=== PATIENT | female | born 1980 | race Two or more races ===

== ENCOUNTER 2016-10-10 10:53 | Inpatient (IN) | payer OTHER ==
[2016-10-10 11:33] VITALS: BMI 31.1
--- NOTE | 2016-10-10 14:50 | HP ---
COWS - Scale Resting Pulse: 2= [place] 101-120 Sweatin= Chills/Flushing Restless Observation: 1= Difficult to Sit Still Pupil Size: 0= Normal to Room Light Bone or Joint Aches: 2= Severe Diffuse Aches Runny Nose/ Eye Tearin= Runny Nose/Eyes GI Upset > 30mins: 3= Vomiting/Diarrhea Tremor Observation: 2= Slight Tremor Visible Yawning Observation: 0= None Anxiety or Irritability: 2=Irritable/Anxious Goose Flesh Skin: 3=Piloerection COWS Score: 18 CIWA Score - CIWA Score Nausea/Vomitin Muscle Tremors: 2 Anxiety: 4-Mod. Anxious/Guarded Agitation: 2 Paroxysmal Sweats: 3 Orientation: 0-Oriented Tacttile Disturbances: 3-Moderate Itch/Numb/Burn Auditory Disturbances: 0-None Visual Disturbances: 2-Mild Sensitivity Headache: 4-Moderately Severe CIWA-Ar Total Score: 25 Admission ROS BHS - HPI Chief Complaint: "I am here because I am trying to get healthy for my daughter." Pt. here to Detox from Alcohol, Xanax, and Opioids (Percocet and Suboxone). Allergies/Adverse Reactions: Allergies Allergy/AdvReac Type Severity Reaction Status Date / Time No Known Allergies Allergy Verified 10/10/16 12:38 History of Present Illness: Pt. is a 36 YO female here to Detox from Alcohol, Xanax, and Opioids (Percocet and Suboxone, both bought on street). Pt. has had several previous Detox admissions at [facility]. Pt. also uses Cocaine and Marijuana each approx. every other day. Exam Limitations: No Limitations - Ebola screening Have you traveled outside of the country in the last 21 days: No Have you had contact with anyone from an Ebola affected area: No Have you been sick,other than usual withdrawal symptoms: No Do you have a fever: No - Review of Systems Constitutional: Chills, Diaphoresis, Fever, Loss of Appetite, Malaise, Night Sweats, Changes in sleep, Unexplained wgt Loss (Lost approx. 20 lbs over last 2- 3 months.) EENT: reports: Blurred Vision, Tearing, Ear Discharge (Only When getting high.) , Tinnitus, Nose Congestion, Sinus Pressure, Dental Problems (Missing several teeth.), Mouth Pain, Throat Pain (Pt.'s voice is somewhat hoarse. Pt. reports that this is due to drug use and excessive yelling during a recent argument.) Respiratory: reports: Shortness of Breath, Productive cough Cardiac: reports: Chest Pain (Only when getting high. NONE CURRENTLY.), Palpitations GI: reports: Nausea, Poor Appetite, Vomiting, Indigestion, Abdominal cramping, Other (Pt. reports blood on toilet paper and in toilet after having a bowel movement. Last episode: 2 days ago. Pt. had seen MD for evaluation of this recently, but has not yet received results.) : reports: Other (Occasional difficulty initiating void stream.) Musculoskeletal: reports: Back Pain, Joint Pain, Muscle Pain, Neck Pain, Joint Stiffness Integumentary: reports: Pruritus (Pt. reports history of Athlete's Foot on bilateral feet.) Neuro: reports: Headache, Tremors Endocrine: reports: No Symptoms Reported Hematology: reports: Easy Bruising Psychiatric: reports: Mood/Affect Appropiate, Orientated x3, Anxious, Depressed Other Systems: Reviewed and Negative Patient History - Patient Medical History Hx Anemia: No Hx Asthma: Yes (Uses Albuterol Inhaler intermittently.) Hx Chronic Obstructive Pulmonary Disease (COPD): No Hx Cancer: No Hx Cardiac Disorders: No Hx Congestive Heart Failure: No Hx Hypertension: No Hx Hypercholesterolemia: No Hx Pacemaker: No HX Cerebrovascular Accident: No Hx Seizures: No Hx Dementia: No Hx Diabetes: No Hx Gastrointestinal Disorders: No Hx Liver Disease: No Hx Genitourinary Disorders: No Hx Sexually Transmitted Disorders: Yes Hx Renal Disease (ESRD): No Hx Thyroid Disease: No Hx Human Immunodeficiency Virus (HIV): No (NEGATIVE HX; Last tested: Approx. 2 weeks ago.) Hx Hepatitis C: No (Last Tested: approx. 6 months ago: NEGATIVE.) Hx Depression: Yes Hx Suicide Attempt: No (PATIENT DENIES CURRENT SI /HI.) Hx Bipolar Disorder: Yes (40mg sammy, seroquel) Hx Schizophrenia: No - Patient Surgical History Past Surgical History: Yes Hx Neurologic Surgery: No Hx Cataract Extraction: No Hx Cardiac Surgery: No Hx Lung Surgery: No Hx Breast Surgery: No Hx Breast Biopsy: No Hx Abdominal Surgery: No Hx Appendectomy: No Hx Cholecystectomy: No Hx Genitourinary Surgery: No Hx Section: No Hx Orthopedic Surgery: Yes (left mandible fx in 01/2013) Other Surgical History: Pt. has had several abortions between 2007 - Current. Anesthesia Reaction: No - PPD History Previous Implant?: Yes Documented Results: Negative w/o proof Implanted On Prior [facility] Admission?: Yes Date: 11/21/14 Results: 0 mm PPD to be Administered?: Yes - Reproductive History Patient is a Female of Child Bearing Age (11 -55 yrs old): Yes Last Menstrual Period: 10/08/16 Patient : No - Smoking Cessation Smoking history: Current every day smoker Have you smoked in the past 12 months: Yes Aproximately how many cigarettes per day: 20 Cigars Per Day: 0 Hx Chewing Tobacco Use: No Initiated information on smoking cessation: Yes 'Breaking Loose' booklet given: 10/10/16 (GIVEN ON UNIT.) - Substance & Tx. History Hx Alcohol Use: Yes Hx Substance Use: Yes Substance Use Type: Alcohol, Cocaine, Heroin, Marijuana, Opiates, Tranquilizers Hx Substance Use Treatment: Yes (Previous Detox admissions at [facility].) - Substances Abused Alcohol Route: Oral Frequency: Daily Amount used: 2 pints circo, 12 beers Age of first use: 10 Date of Last Use: 10/10/16 Alprazolam (Xanax) Route: Oral Frequency: 1-2 times per week Amount used: $60 Age of first use: 26 Date of Last Use: 10/08/16 Cocaine Route: Inhalation Frequency: 3-6 times per week Amount used: 8mg Age of first use: 16 Date of Last Use: 10/10/16 Ativan Route: Oral Frequency: 3-6 times per week Amount used: 10mg Age of first use: 29 Date of Last Use: 10/10/16 percocet Route: Oral Frequency: 1-2 times per week Amount used: 50mg Age of first use: 23 Date of Last Use: 10/04/16 suboxone Route: Oral Frequency: Daily Amount used: 3 strips Age of first use: 36 Date of Last Use: 10/08/16 Marijuana/Hashish Route: Smoking Frequency: 3-6 times per week Amount used: 1 Joint. Age of first use: 15 Date of Last Use: 10/09/16 Family Disease History - Family Disease History Family Disease History: Diabetes: Grandparent, Mother (alcoholic), Brother ( Blood clots; HTN.), Heart Disease: Father (alcoholic, stroke; .), Other : Father, Mother Admission Physical Exam [facility] - Vital Signs Vital Signs: Vital Signs - 24 hr 10/10/16 11:29 Temperature 97.8 F Pulse Rate 102 H Respiratory 18 Rate Blood Pressure 149/90 - Physical General Appearance: Yes: No Apparent Distress, Nourished, Appropriately Dressed , Tremorous, Anxious HEENTM: Yes: Hearing grossly Normal, Normocephalic, CHUCKY, Other (Small sore noted on right lower gum of mouth. Pt. reports that she feels discomfort at site and that she first noticed discomfort approx. 2 days ago. No bleeding, discoloration, or unusual discharge noted at site.) Respiratory: Yes: Chest Non-Tender, Lungs Clear, No Respiratory Distress Neck: Yes: No masses,lesions,Nodules, Supple, Trachea in good position Breast: Yes: Breast Exam Deferred Cardiology: Yes: Regular Rhythm, Regular Rate, S1, S2 Abdominal: Yes: Normal Bowel Sounds, Non Tender, Soft, Protuberent Genitourinary: Yes: Within Normal Limits Back: Yes: Decreased Range of Motion Musculoskeletal: Yes: Gait Steady, Back pain, Joint Stiffness, Muscle Pain Extremities: Yes: Tremors Neurological: Yes: Fully Oriented, Alert, Normal Mood/Affect, Normal Response Integumentary: Yes: Normal Color, Dry, Warm Lymphatic: Yes: Within Normal Limits - Diagnostic (1) Cocaine dependence Current Visit: Yes Status: Acute (2) Alcohol dependence with uncomplicated withdrawal Current Visit: Yes Status: Acute (3) Marijuana dependence Current Visit: Yes Status: Acute (4) Asthma Current Visit: Yes Status: Chronic Qualifiers: Asthma severity: mild intermittent Asthma complication type: uncomplicated Qualified Code(s): J45.20 - Mild intermittent asthma, uncomplicated (5) Nicotine dependence Current Visit: Yes Status: Chronic Qualifiers: Nicotine product type: cigarettes Substance use status: uncomplicated Qualified Code(s): F17.210 - Nicotine dependence, cigarettes, uncomplicated (6) Opioid dependence with withdrawal Current Visit: Yes Status: Acute (7) Sedative, hypnotic or anxiolytic dependence with withdrawal, uncomplicated Current Visit: Yes Status: Acute Cleared for Admission [facility] - Detox or Rehab [facility] Level of Care: Medically Managed Detox Regimen/Protocol: Methadone/Valium (ADVISED PT. TO FOLLOW-UP AFTER DISCHARGE FROM DETOX: WITH THEATER MANAGER FOR GENERAL MEDICAL ASSESSMENT, WITH REVIT DRAFTER FOR GENERAL FOOT ASSESSMENT, AND WITH DENTIST FOR ORAL CARE.) BHS Breath Alcohol Content Breath Alcohol Content: 0 Urine Pregancy Test - Result Urine Test Results: Negative- NO Line Present Urine Drug Screen - Results Drug Screen Negative: No Urine Drug Screen Results: CHAYA-Cocaine, BZO-Benzodiazepines, TCA-Tricyclic Antidepress, OXY-Oxycodone
[2016-10-10] MEDS ORDERED: LOPERAMIDE HCL 2 MG CAPSULE PO PRN (15:56)
[2016-10-10] MEDS ORDERED: MENTHOL/PHENOL 1 EACH UD MM PRN (15:56)
[2016-10-10] MEDS ORDERED: diazePAM 5 MG TABLET PO ONE (15:56)
[2016-10-10] MEDS ORDERED: MAG HYDROX/AL HYDROX/SIMETH 30 ML UNIT-DOSE CUP PO PRN (15:56)
[2016-10-10] MEDS ORDERED: P-EPHED 60MG/TRIPROLIDI 2.5MG TABLET PO PRN (15:56)
[2016-10-10] MEDS ORDERED: MAGNESIUM HYDROX 2400MG/30ML ORAL SUSPENSION 30 ML CUP PO PRN (15:56)
[2016-10-10] MEDS ORDERED: METHADONE HCL 10 MG TABLET (FOR DETOX USE ONLY) PO ONE ×2 (15:56→23:00)
[2016-10-10] MEDS ORDERED: ACETAMINOPHEN 325 MG TABLET (FP) PO PRN (15:56)
[2016-10-10] MEDS ORDERED: MAGNESIUM CITRATE 300 ML BOTTLE PO PRN (15:56)
[2016-10-10] MEDS ORDERED: AMMONIUM LACTATE 12% LOTION 225 GM BOTTLE TP PRN (16:03)
[2016-10-10] MEDS ORDERED: WITCH HAZEL 50% (TUCKS) 40 PAD/JAR PAD TP PRN (16:04)
[2016-10-10] MEDS ORDERED: ALBUTEROL SO4 6.7 GM HFA INHALER IH PRN (16:09)
[2016-10-10] MEDS: NICOTINE 21 MG/24 HOURS TOPICAL PATCH TD SCH (17:01)
[2016-10-10] MEDS: THIAMINE HCL 100 MG TABLET (FP) PO SCH (22:21)
[2016-10-10] MEDS: TOLNAFTATE 1% CREAM 15 GM TUBE TP SCH (22:55)
[2016-10-10] MEDS: diazePAM 5 MG TABLET PO SCH (22:55)
[2016-10-11] MEDS: diazePAM 5 MG TABLET PO SCH ×3 (05:33→22:27)
[2016-10-11] MEDS: NICOTINE POLACRILEX 2 MG GUM BC PRN (05:35)
[2016-10-11] MEDS ORDERED: METHADONE HCL 10 MG TABLET (FOR DETOX USE ONLY) PO SCH (10:00)
[2016-10-11 10:06] LABS: ALBUMIN 3.1 g/dl (3.4-5.0); ANION GAP 8 (8-16); CALCIUM 8.4 mg/dL (8.5-10.1); CO2 26 mmol/L (21-32); CREATININE 0.6 mg/dL (0.55-1.02); GLUCOSE,RANDOM 86 mg/dL (74-106); SGOT/AST 16 U/L (15-37); SGPT/ALT 19 U/L (12-78)
[2016-10-11 10:08] LABS: ALK PHOS 77 U/L (45-117); BILIRUBIN,TOTAL 0.2 mg/dL (0.2-1.0); MCH 28.7 pg (25.7-33.7); MCHC 32.3 g/dl (32.0-36.0); MEAN PLT VOLUME 9.7 fl (7.5-11.1); PLATELET COUNT 300 K/MM3 (134-434); RDW 14.6 % (11.6-15.6); TOT PROT 6.2 g/dl (6.4-8.2); WHITE BLOOD COUNT 5.6 K/mm3 (4.0-10.0)
[2016-10-11 10:36] LABS: URINE APPEARANCE CLEAR; URINE BILIRUBIN NEGATIVE (NEGATIVE); URINE COLOR STRAW; URINE GLUCOSE (UA) NEGATIVE (NEGATIVE); URINE KETONE NEGATIVE (NEGATIVE); URINE NITRITE NEGATIVE (NEGATIVE); URINE PROTEIN NEGATIVE (NEGATIVE); URINE UROBILINOGEN NEGATIVE E.U./dl (0.2-1.0)
[2016-10-11] MEDS: TOLNAFTATE 1% CREAM 15 GM TUBE TP SCH ×2 (10:43→22:27)
[2016-10-11] MEDS: PRENATAL VITAMINS W/ FOLIC ACID TABLET (FP) PO SCH (10:43)
[2016-10-11] MEDS: NICOTINE 21 MG/24 HOURS TOPICAL PATCH TD SCH (10:45)
[2016-10-11 11:14] LABS: URINE BLOOD 2+ (NEGATIVE); URINE LEUK ESTERASE 1+ (NEGATIVE)
[2016-10-11 11:20] LABS: URINE WBC 2 /hpf (3-5)
--- NOTE | 2016-10-11 11:57 | PN ---
S CIWA - CIWA Score Nausea/Vomitin Muscle Tremors: 3 Anxiety: 3 Agitation: 3 Paroxysmal Sweats: 1-Minimal Palms Moist Orientation: 0-Oriented Tacttile Disturbances: 1-Very Mild Itch/Numbness Auditory Disturbances: 1-Very Mild Visual Disturbances: 1-Very Mild Sensitivity Headache: 2-Mild CIWA-Ar Total Score: 18 BHS COWS - Scale Resting Pulse: 0= [place] 80 or Below Sweatin= Chills/Flushing Restless Observation: 3= Extraneous Movement Pupil Size: 1= Pupils >than Normal Bone or Joint Aches: 2= Severe Diffuse Aches Runny Nose/ Eye Tearin= Runny Nose/Eyes GI Upset > 30mins: 2= Nausea/Diarrhea Tremor Observation of Outstretched Hands: 2= Slight Tremor Visible Yawning Observation: 1= 1-2x During Session Anxiety or Irritability: 2=Irritable/Anxious Goose Flesh Skin: 0=Smooth Skin COWS Score: 16 S Progress Note (SOAP) Subjective: ALERT,IRRRITABLE,ANXIOUS,INTERRUPTED SLEEP,TREMOR,PAIN IN THE BODY AND BACK Objective: 10/11/16 11:54 Vital Signs Temperature 97.6 F 10/11/16 10:00 Pulse Rate 77 10/11/16 10:00 Respiratory Rate 18 10/11/16 10:00 Blood Pressure 118/44 10/11/16 10:00 O2 Sat by Pulse Oximetry (%) EKG NSR NO CHEST PAIN,NO SOB,NO DIZZINESS Laboratory Last Values WBC 5.6 K/mm3 (4.0-10.0) 10/11/16 06:15 RBC 4.25 M/mm3 (3.60-5.2) 10/11/16 06:15 Hgb 12.2 GM/dL (10.7-15.3) 10/11/16 06:15 Hct 37.8 % (32.4-45.2) 10/11/16 06:15 MCV 89.0 fl (80-96) 10/11/16 06:15 MCHC 32.3 g/dl (32.0-36.0) 10/11/16 06:15 RDW 14.6 % (11.6-15.6) 10/11/16 06:15 Plt Count 300 K/MM3 (134-434) D 10/11/16 06:15 MPV 9.7 fl (7.5-11.1) 10/11/16 06:15 Sodium 142 mmol/L (136-145) 10/11/16 06:15 Potassium 3.9 mmol/L (3.5-5.1) 10/11/16 06:15 Chloride 108 mmol/L (98-107) H 10/11/16 06:15 Carbon Dioxide 26 mmol/L (21-32) 10/11/16 06:15 Anion Gap 8 (8-16) 10/11/16 06:15 BUN 4 mg/dL (7-18) L D 10/11/16 06:15 Creatinine 0.6 mg/dL (0.55-1.02) 10/11/16 06:15 Creat Clearance w eGFR > 60 (>60) 10/11/16 06:15 Random Glucose 86 mg/dL (74-106) 10/11/16 06:15 Calcium 8.4 mg/dL (8.5-10.1) L 10/11/16 06:15 Total Bilirubin 0.2 mg/dL (0.2-1.0) D 10/11/16 06:15 AST 16 U/L (15-37) 10/11/16 06:15 ALT 19 U/L (12-78) 10/11/16 06:15 Alkaline Phosphatase 77 U/L (45-117) 10/11/16 06:15 Total Protein 6.2 g/dl (6.4-8.2) L 10/11/16 06:15 Albumin 3.1 g/dl (3.4-5.0) L 10/11/16 06:15 Urine Color Straw 10/11/16 07:00 Urine Appearance Clear 10/11/16 07:00 Urine pH 7.0 (5.0-8.0) D 10/11/16 07:00 Ur Specific [place] 1.009 (1.001-1.035) 10/11/16 07:00 Urine Protein Negative (NEGATIVE) 10/11/16 07:00 Urine Glucose (UA) Negative (NEGATIVE) 10/11/16 07:00 Urine Ketones Negative (NEGATIVE) 10/11/16 07:00 Urine Blood 2+ (NEGATIVE) H 10/11/16 07:00 Urine Nitrite Negative (NEGATIVE) 10/11/16 07:00 Urine Bilirubin Negative (NEGATIVE) 10/11/16 07:00 Urine Urobilinogen Negative E.U./dl (0.2-1.0) 10/11/16 07:00 Ur Leukocyte Esterase 1+ (NEGATIVE) H 10/11/16 07:00 Urine RBC None /hpf (0-3) 10/11/16 07:00 Urine WBC 2 /hpf (3-5) 10/11/16 07:00 Ur Epithelial Cells Rare /hpf (FEW) 10/11/16 07:00 LABS PENDING Assessment: 10/11/16 11:56 WITHDRAWAL SYMPTOM Plan: CONTINUE DETOX
--- NOTE | 2016-10-11 15:43 | CONSULT ---
[facility] Psychiatric Consult - Data Date of interview: 10/11/16 Admission source: [facility] Identifying data: Readmission to [facility] for this 36 y/o female seeking detox treatment on for alcohol,opioid,benzodiazepine (ativan/ xanax),marijuana and cocaine dependence.Patient is single,a mother of one, homeless,unemployed and deprived of any source of income. Substance Abuse History: - Smoking Cessation. Smoking history: Current every day smoker. Have you smoked in the past 12 months: Yes. Aproximately how many cigarettes per day: 20. Cigars Per Day: 0. Hx Chewing Tobacco Use: No. Initiated information on smoking cessation: Yes. 'Breaking Loose' booklet given : 10/10/16 (GIVEN ON UNIT.). - Substance & Tx. History. Hx Alcohol Use: Yes. Hx Substance Use: Yes. Substance Use Type: Alcohol, Cocaine, Heroin, Marijuana , Opiates, Tranquilizers. Hx Substance Use Treatment: Yes (Previous Detox admissions at [facility] - Substances Abused. Alcohol. Route: Oral. Frequency: Daily. Amount used: 2 pints circo, 12 beers. Age of first use: 10. Date of Last Use: 10/10/16. Alprazolam (Xanax). Route: Oral. Frequency: 1- 2 times per week. Amount used: $60. Age of first use: 26. Date of Last Use: 10/08/16. Cocaine. Route: Inhalation. Frequency: 3-6 times per week. Amount used: 8mg. Age of first use: 16. Date of Last Use: 10/10/16. Ativan. Route: Oral. Frequency: 3-6 times per week. Amount used: 10mg. Age of first use: 29. Date of Last Use: 10/10/16. percocet. Route: Oral. Frequency: 1-2 times per week. Amount used: 50mg. Age of first use: 23. Date of Last Use: 10/04/16. suboxone. Route: Oral. Frequency: Daily. Amount used: 3 strips. Age of first use: 36. Date of Last Use: 10/08/16. Marijuana/Hashish. Route: Smoking. Frequency: 3-6 times per week. Amount used : 1 Joint. Age of first use: 15. Date of Last Use: 10/09/16. Confirmed by the patient in this interview. Medical History: Remarkable for bronchial asthma,GERD,sciatica,low back pain and a history of orthosurgery for fracture of left mandible (2012). Psychiatric History: Patient reports a history of 5-7 psychiatric hospitalizations.She is known to [facility] and [facility].Diagnosis:Bipolar Disorder and PTSD (self-report).Ms Soriano states she is not adherent to medications due to her constant search for street drugs (she reportedly buys " everything " from street dealers,including suboxone,lorazepam, xanax,percocet).Medications (prescribed but not taken for more than two weeks): geodon,depakote and vistaril.Lost to follow up for months.Patient admits to " a couple of suicide attempts " via self-mutilation and drug overdoses. Physical/Sexual Abuse/Trauma History: Patient denies. Additional Comment: Urine Drug Screen Results: CHAYA-Cocaine, BZO-Benzodiazepines , TCA-Tricyclic Antidepressant, OXY-Oxycodone.Noted. Mental Status Exam - Mental Status Exam Alert and Oriented to: Time, Place, Person Cognitive Function: Good Patient Appearance: Well Groomed Mood: Depressed, Withdrawn, Anxious Affect: Mood Congruent Patient Behavior: Sedated (midly), Fatigued, Cooperative Speech Pattern: Clear Voice Loudness: Normal Thought Process: Goal Oriented Thought Disorder: Not Present Hallucinations: Denies Suicidal Ideation: Denies Homicidal Ideation: Denies Insight/Judgement: Poor Sleep: Poorly, Difficulty falling asleep Appetite: Good Muscle strength/Tone: Normal Gait/Station: Normal Psychiatric Findings - Problem List ([place] 1, 2,3) (1) Alcohol dependence with uncomplicated withdrawal Current Visit: Yes Status: Acute (2) Opioid dependence with withdrawal Current Visit: Yes Status: Acute (3) Sedative, hypnotic or anxiolytic dependence with withdrawal, uncomplicated Current Visit: Yes Status: Acute (4) Nicotine dependence Current Visit: Yes Status: Acute Qualifiers: Nicotine product type: cigarettes Substance use status: uncomplicated Qualified Code(s): F17.210 - Nicotine dependence, cigarettes, uncomplicated (5) Cocaine dependence with withdrawal Current Visit: Yes Status: Acute (6) Bipolar disorder Current Visit: Yes Status: Chronic (7) Asthma Current Visit: Yes Status: Chronic Qualifiers: Asthma severity: mild intermittent Asthma complication type: uncomplicated Qualified Code(s): J45.20 - Mild intermittent asthma, uncomplicated (8) PUD (peptic ulcer disease) Current Visit: Yes Status: Chronic (9) Sciatica Current Visit: Yes Status: Chronic Qualifiers: Laterality: left Qualified Code(s): M54.32 - Sciatica, left side - Initial Treatment Plan Initial Treatment Plan: Psychoeducation.Detoxification.
--- NOTE | 2016-10-11 16:26 | EKG ---
Test Reason : Blood Pressure : / mmHG Vent. Rate : 091 BPM Atrial Rate : 091 BPM P-R Int : 150 ms QRS Dur : 090 ms QT Int : 390 ms P-R-T Axes : 062 008 017 degrees QTc Int : 479 ms NORMAL SINUS RHYTHM POOR R WAVE PROGRESSION ABNORMAL ECG NO PREVIOUS ECGS AVAILABLE Confirmed by BART BAKER, LUZMA ([id number]) on 10/11/2016 4:26:39 PM Referred By: Confirmed By:LUZMA ARRIAGA MD
[2016-10-11] MEDS: ZIPRASIDONE 20 MG CAPSULE PO SCH (22:27)
[2016-10-11] MEDS: THIAMINE HCL 100 MG TABLET (FP) PO SCH (22:27)
[2016-10-11] MEDS: SODIUM CHLORIDE NASAL SPRAY 44 ML BOTTLE NS PRN (22:28)
[2016-10-11] MEDS: diphenhydrAMINE HCL 50 MG CAPSULE PO PRN (22:28)
[2016-10-11] MEDS: diazePAM 5 MG TABLET PO PRN (23:48)
[2016-10-12] MEDS: guaiFENesin/D-METHORPHAN HB 10 ML UNIT-DOSE CUPS PO PRN ×2 (07:27→20:42)
[2016-10-12] MEDS: PRENATAL VITAMINS W/ FOLIC ACID TABLET (FP) PO SCH (10:33)
[2016-10-12] MEDS: METHADONE HCL 5 MG TABLET (FOR DETOX USE ONLY) PO SCH (10:33)
[2016-10-12] MEDS: NICOTINE 21 MG/24 HOURS TOPICAL PATCH TD SCH (10:34)
[2016-10-12] MEDS: diazePAM 5 MG TABLET PO SCH ×2 (10:34→22:17)
[2016-10-12] MEDS: TOLNAFTATE 1% CREAM 15 GM TUBE TP SCH ×2 (10:34→22:19)
[2016-10-12] MEDS: ZIPRASIDONE 20 MG CAPSULE PO SCH ×2 (11:00→23:42)
--- NOTE | 2016-10-12 12:20 | PN ---
S CIWA - CIWA Score Nausea/Vomitin Muscle Tremors: 3 Anxiety: 3 Agitation: 3 Paroxysmal Sweats: 3 Orientation: 0-Oriented Tacttile Disturbances: 2-Mild Itch/Numbness/Burn Auditory Disturbances: 0-None Visual Disturbances: 0-None Headache: 0-None Present CIWA-Ar Total Score: 17 BHS COWS - Scale Resting Pulse: 0= [place] 80 or Below Sweatin=Flushed/Facial Moisture Restless Observation: 1= Difficult to Sit Still Pupil Size: 1= Pupils >than Normal Bone or Joint Aches: 2= Severe Diffuse Aches Runny Nose/ Eye Tearin= Nasal Congestion GI Upset > 30mins: 1= Stomach Cramp Tremor Observation of Outstretched Hands: 2= Slight Tremor Visible Yawning Observation: 0= None Anxiety or Irritability: 2=Irritable/Anxious Goose Flesh Skin: 0=Smooth Skin COWS Score: 12 S Progress Note (SOAP) Subjective: interrupted sleep, sweats , shakes, lbp, i've been better" Objective: 10/12/16 12:18 Vital Signs Temperature 99.7 F H 10/12/16 09:51 Pulse Rate 67 10/12/16 09:51 Respiratory Rate 18 10/12/16 09:51 Blood Pressure 102/56 10/12/16 09:51 O2 Sat by Pulse Oximetry (%) Laboratory Tests 10/11/16 10/11/16 10/11/16 06:15 06:15 06:15 WBC 5.6 RBC 4.25 Hgb 12.2 Hct 37.8 MCV 89.0 MCHC 32.3 RDW 14.6 Plt Count 300 D MPV 9.7 Sodium 142 Potassium 3.9 Chloride 108 H Carbon Dioxide 26 Anion Gap 8 BUN 4 L D Creatinine 0.6 Creat Clearance w eGFR > 60 Random Glucose 86 Calcium 8.4 L Total Bilirubin 0.2 D AST 16 ALT 19 Alkaline Phosphatase 77 Total Protein 6.2 L Albumin 3.1 L Urine Color Urine Appearance Urine pH Ur Specific [place] Urine Protein Urine Glucose (UA) Urine Ketones Urine Blood Urine Nitrite Urine Bilirubin Urine Urobilinogen Ur Leukocyte Esterase Urine RBC Urine WBC Ur Epithelial Cells Valproic Acid RPR Titer Nonreactive 10/11/16 10/12/16 07:00 08:30 WBC RBC Hgb Hct MCV MCHC RDW Plt Count MPV Sodium Potassium Chloride Carbon Dioxide Anion Gap BUN Creatinine Creat Clearance w eGFR Random Glucose Calcium Total Bilirubin AST ALT Alkaline Phosphatase Total Protein Albumin Urine Color Straw Urine Appearance Clear Urine pH 7.0 D Ur Specific [place] 1.009 Urine Protein Negative Urine Glucose (UA) Negative Urine Ketones Negative Urine Blood 2+ H Urine Nitrite Negative Urine Bilirubin Negative Urine Urobilinogen Negative Ur Leukocyte Esterase 1+ H Urine RBC None Urine WBC 2 Ur Epithelial Cells Rare Valproic Acid < 3.000 L RPR Titer pt aox3 lying in bed Assessment: 10/12/16 12:19 withdrawl sx's lbp Plan: cont. detox increase fluids protonix lidocaine patch gabapentin
[2016-10-12] MEDS ORDERED: LIDOCAINE 5% TOPICAL PATCH TP ONE (12:36)
[2016-10-12] MEDS: GABAPENTIN 100 MG CAPSULE (FP) PO SCH ×2 (13:04→22:17)
[2016-10-12] MEDS: diazePAM 5 MG TABLET PO PRN (13:05)
[2016-10-12] MEDS: THIAMINE HCL 100 MG TABLET (FP) PO SCH (22:17)
[2016-10-12] MEDS: diphenhydrAMINE HCL 50 MG CAPSULE PO PRN (22:18)
[2016-10-12] MEDS: PANTOPRAZOLE 40 MG TABLET (FP) PO SCH (22:19)
[2016-10-12] MEDS: NICOTINE POLACRILEX 2 MG GUM BC PRN (22:20)
[2016-10-13] MEDS: diazePAM 5 MG TABLET PO PRN ×2 (05:46→14:48)
[2016-10-13] MEDS: guaiFENesin/D-METHORPHAN HB 10 ML UNIT-DOSE CUPS PO PRN (05:46)
[2016-10-13] MEDS: GABAPENTIN 100 MG CAPSULE (FP) PO SCH ×3 (05:47→21:30)
[2016-10-13] MEDS: diazePAM 5 MG TABLET PO SCH ×2 (10:26→22:30)
[2016-10-13] MEDS: PRENATAL VITAMINS W/ FOLIC ACID TABLET (FP) PO SCH (10:26)
[2016-10-13] MEDS: METHADONE HCL 5 MG TABLET (FOR DETOX USE ONLY) PO SCH (10:27)
[2016-10-13] MEDS: ZIPRASIDONE 20 MG CAPSULE PO SCH ×2 (10:27→22:30)
[2016-10-13] MEDS: TOLNAFTATE 1% CREAM 15 GM TUBE TP SCH ×2 (10:28→22:31)
[2016-10-13] MEDS: NICOTINE 21 MG/24 HOURS TOPICAL PATCH TD SCH (10:28)
[2016-10-13] MEDS: SODIUM CHLORIDE NASAL SPRAY 44 ML BOTTLE NS PRN (10:30)
[2016-10-13] MEDS: NICOTINE POLACRILEX 2 MG GUM BC PRN (10:33)
[2016-10-13] MEDS: LIDOCAINE 5% TOPICAL PATCH TP SCH (10:48)
--- NOTE | 2016-10-13 10:50 | PN ---
BHS Progress Note (SOAP) Subjective: INTERRUPTED SLEEP, HOARSENESS Objective: 10/13/16 10:47 Vital Signs Temperature 96.4 F L 10/13/16 09:55 Pulse Rate 72 10/13/16 09:55 Respiratory Rate 18 10/13/16 09:55 Blood Pressure 114/62 10/13/16 09:55 O2 Sat by Pulse Oximetry (%) Laboratory Tests 10/11/16 10/11/16 10/11/16 06:15 06:15 06:15 WBC 5.6 RBC 4.25 Hgb 12.2 Hct 37.8 MCV 89.0 MCHC 32.3 RDW 14.6 Plt Count 300 D MPV 9.7 Sodium 142 Potassium 3.9 Chloride 108 H Carbon Dioxide 26 Anion Gap 8 BUN 4 L D Creatinine 0.6 Creat Clearance w eGFR > 60 Random Glucose 86 Calcium 8.4 L Total Bilirubin 0.2 D AST 16 ALT 19 Alkaline Phosphatase 77 Total Protein 6.2 L Albumin 3.1 L Urine Color Urine Appearance Urine pH Ur Specific [place] Urine Protein Urine Glucose (UA) Urine Ketones Urine Blood Urine Nitrite Urine Bilirubin Urine Urobilinogen Ur Leukocyte Esterase Urine RBC Urine WBC Ur Epithelial Cells Valproic Acid RPR Titer Nonreactive 10/11/16 10/12/16 07:00 08:30 WBC RBC Hgb Hct MCV MCHC RDW Plt Count MPV Sodium Potassium Chloride Carbon Dioxide Anion Gap BUN Creatinine Creat Clearance w eGFR Random Glucose Calcium Total Bilirubin AST ALT Alkaline Phosphatase Total Protein Albumin Urine Color Straw Urine Appearance Clear Urine pH 7.0 D Ur Specific [place] 1.009 Urine Protein Negative Urine Glucose (UA) Negative Urine Ketones Negative Urine Blood 2+ H Urine Nitrite Negative Urine Bilirubin Negative Urine Urobilinogen Negative Ur Leukocyte Esterase 1+ H Urine RBC None Urine WBC 2 Ur Epithelial Cells Rare Valproic Acid < 3.000 L RPR Titer PT AOX3 SITTING UP IN BED IN NAD , HOARSENESS 10/13/16 10:49 ORAL - ERYTHEMA , NO EXUDATES Assessment: 10/13/16 10:49 WITHDRAWL SX'S LARYNGITIS Plan: CONT. DETOX INCREASE FLUIDS ZPACK THROAT LOZENGES
[2016-10-13] MEDS ORDERED: AZITHROMYCIN 250 MG TABLET (FP) PO ONE (11:15)
[2016-10-13] MEDS: PANTOPRAZOLE 40 MG TABLET (FP) PO SCH (22:30)
[2016-10-13] MEDS: THIAMINE HCL 100 MG TABLET (FP) PO SCH (22:31)
[2016-10-13] MEDS: diphenhydrAMINE HCL 50 MG CAPSULE PO PRN (22:33)
[2016-10-14] MEDS: diphenhydrAMINE HCL 50 MG CAPSULE PO PRN (01:18)
[2016-10-14] MEDS: hydrOXYzine PAMOATE 50 MG CAPSULE (FP) PO PRN ×2 (05:53→22:49)
[2016-10-14] MEDS: GABAPENTIN 100 MG CAPSULE (FP) PO SCH ×3 (05:53→22:45)
[2016-10-14] MEDS ORDERED: METHADONE HCL 10 MG TABLET (FOR DETOX USE ONLY) PO SCH (10:00)
[2016-10-14] MEDS ORDERED: diazePAM 5 MG TABLET PO SCH (10:00)
[2016-10-14] MEDS ORDERED: AZITHROMYCIN 250 MG TABLET (FP) PO SCH (10:00)
[2016-10-14] MEDS: PRENATAL VITAMINS W/ FOLIC ACID TABLET (FP) PO SCH (10:18)
[2016-10-14] MEDS: TOLNAFTATE 1% CREAM 15 GM TUBE TP SCH ×2 (10:19→22:55)
[2016-10-14] MEDS: NICOTINE 21 MG/24 HOURS TOPICAL PATCH TD SCH (10:19)
[2016-10-14] MEDS: ZIPRASIDONE 20 MG CAPSULE PO SCH ×2 (10:19→22:45)
[2016-10-14] MEDS: SODIUM CHLORIDE NASAL SPRAY 44 ML BOTTLE NS PRN ×2 (10:23→22:46)
--- NOTE | 2016-10-14 11:00 | PN ---
BHS Progress Note (SOAP) Subjective: tired sleepy Objective: 10/14/16 10:58 Vital Signs Temperature 98.1 F 10/14/16 09:44 Pulse Rate 74 10/14/16 09:44 Respiratory Rate 16 10/14/16 09:44 Blood Pressure 122/66 10/14/16 09:44 O2 Sat by Pulse Oximetry (%) awake/alert ambulating no acute distress Assessment: 10/14/16 10:59 withdrawal sx Plan: continue detox increase fluids d/c in am
--- NOTE | 2016-10-14 11:12 | PN ---
Psychiatric Progress Note Vital Signs: Vital Signs Period Temp Pulse Resp BP Sys/Yan Pulse Ox Last 24 Hr 97.7 F-99.1 F 65-84 16-18 115-152/60-68 Date of Session: 10/14/16 Chief Complaint:: My medications HPI: Patient reports taking prior to admission: Trazodone 200mg po qhs. Depakote 250mg po bid. Geodon 20mg po bid Current Medications: Active Medications Generic Name Dose Route Start Last Admin Trade Name Freq PRN Reason Stop Dose Admin Acetaminophen 650 mg 10/10/16 15:56 Tylenol - PO Q4H PRN FEVER OR PAIN Al Hydroxide/Mg Hydroxide 30 ml 10/10/16 15:56 Mylanta Oral Suspension - PO Q6H PRN DYSPEPSIA Albuterol Sulfate 2 puff 10/10/16 16:09 Ventolin Hfa Inhaler - IH Q4H PRN SHORT OF BREATH/WHEEZING Azithromycin 250 mg 10/14/16 10:00 10/14/16 10:20 Zithromax - PO 10/17/16 10:01 250 mg DAILY CHRISTOPHER Administration Diphenhydramine HCl 50 mg 10/10/16 15:56 10/14/16 01:18 Benadryl - PO 50 mg HSMR1 PRN Administration INSOMNIA Eucalyptus/Menthol/Phenol/Sorbitol 1 each 10/10/16 15:56 10/10/16 17:02 Cepastat Lozenge - MM 1 each Q4H PRN Administration SORE THROAT Gabapentin 100 mg 10/14/16 06:00 10/14/16 05:53 Neurontin - PO 100 mg TID CHRISTOPHER Administration Guaifenesin 10 ml 10/10/16 15:56 10/13/16 05:46 Robitussin Dm - PO 10 ml Q6H PRN Administration COUGH Hydroxyzine Pamoate 50 mg 10/10/16 15:56 10/14/16 05:53 Vistaril - PO 50 mg Q4H PRN Administration AGITATION Lactic Acid 1 applic 10/10/16 16:03 10/13/16 10:31 Lac-Hydrin 12 TP 1 applic BID PRN Administration DRY SKIN Lidocaine 1 patch 10/13/16 10:00 10/13/16 10:48 Lidoderm Patch - TP 1 patch DAILY CHRISTOPHER Administration Loperamide HCl 4 mg 10/10/16 15:56 Imodium - PO Q6H PRN DIARRHEA Magnesium Citrate 300 ml 10/10/16 15:56 Citroma - PO Q48H PRN CONSTIPATION Magnesium Hydroxide 30 ml 10/10/16 15:56 Milk Of Magnesia - PO DAILY PRN CONSTIPATION Methadone HCl 5 mg 10/15/16 06:00 Dolophine - PO 10/15/16 06:01 DAILY@0600 CHRISTOPHER Nicotine 21 mg 10/10/16 16:00 10/14/16 10:19 Nicoderm Patch - TD 21 mg DAILY CHRISTOPHER Administration Nicotine Polacrilex 2 mg 10/10/16 15:56 10/13/16 10:33 Nicorette Gum - BC 2 mg Q2H PRN Administration NICOTINE REPLACEMENT RX Pantoprazole Sodium 40 mg 10/12/16 22:00 10/13/16 22:30 Protonix - PO 40 mg HS CHRISTOPHER Administration Multivit/Folic Acid/Iron 1 tab 10/11/16 10:00 10/14/16 10:18 Vitamins (Sjr) - PO 1 tab DAILY CHRISTOPHER Administration Pseudoephedrine/Triprolidine 1 combo 10/10/16 15:56 10/14/16 10:23 Actifed - PO 1 combo TID PRN Administration NASAL CONGESTION Sodium Chloride 2 spray 10/10/16 16:14 10/14/16 10:23 [place] Nasal [place] - NS 2 spray BID PRN Administration NASAL CONGESTION Thiamine HCl 100 mg 10/10/16 22:00 10/13/16 22:31 Vitamin B1 - PO 100 mg HS CHRISTOPHER Administration Tolnaftate 1 applic 10/10/16 22:00 10/14/16 10:19 Tinactin 1% Cream - TP 1 applic BID CHRISTOPHER Administration Witch Gricelda/Glycerin 1 pad 10/10/16 16:04 Tucks Pads - TP PRN PRN PAIN Ziprasidone 20 mg 10/11/16 22:00 10/14/16 10:19 Geodon - PO 20 mg BID CHRISTOPHER Administration Medication(s) Change(s): Trazodone 200mg po qhs. Depakote 250mg po bid. Geodon 20mg po bid Mental Status Exam - Mental Status Exam Alert and Oriented to: Person Cognitive Function: Fair Patient Appearance: Unkempt Mood: Anxious Affect: Mood Congruent Patient Behavior: Talkative, Cooperative Speech Pattern: Excessive Voice Loudness: Mildly Loud Thought Process: Circumstantial, Goal Oriented Thought Disorder: Being Controlled Hallucinations: Denies Suicidal Ideation: Denies Homicidal Ideation: Denies Sleep: Difficulty falling asleep Appetite: Weight loss Muscle strength/Tone: Normal Gait/Station: Normal Additional Comments: Trazodone 200mg po qhs. Depakote 250mg po bid. Geodon 20mg po bid Psychiatric Treatment Plan - Problem List (1) Alcohol dependence with uncomplicated withdrawal Current Visit: Yes (2) Cocaine dependence Current Visit: Yes (3) Cocaine dependence with withdrawal Current Visit: Yes (4) Marijuana dependence Current Visit: Yes (5) Nicotine dependence Current Visit: Yes Qualifiers: Nicotine product type: cigarettes Substance use status: uncomplicated Qualified Code(s): F17.210 - Nicotine dependence, cigarettes, uncomplicated (6) Opioid dependence with withdrawal Current Visit: Yes (7) Sedative, hypnotic or anxiolytic dependence with withdrawal, uncomplicated Current Visit: Yes (8) Bipolar disorder Current Visit: Yes (9) Bipolar I disorder Current Visit: No (10) Alcohol dependence Current Visit: No (11) Opioid dependence Current Visit: No Initial treatment plan: Trazodone 200mg po qhs. Depakote 250mg po bid. Geodon 20mg po bid
[2016-10-14] MEDS: LIDOCAINE 5% TOPICAL PATCH TP SCH ×2 (14:32→14:33)
[2016-10-14] MEDS: THIAMINE HCL 100 MG TABLET (FP) PO SCH (22:45)
[2016-10-14] MEDS: PANTOPRAZOLE 40 MG TABLET (FP) PO SCH (22:45)
[2016-10-15] MEDS: diphenhydrAMINE HCL 50 MG CAPSULE PO PRN (00:51)
[2016-10-15] MEDS: GABAPENTIN 100 MG CAPSULE (FP) PO SCH (05:44)
[2016-10-15] MEDS ORDERED: METHADONE HCL 5 MG TABLET (FOR DETOX USE ONLY) PO SCH (06:00)
--- NOTE | 2016-10-15 08:09 | PN ---
S Progress Note (SOAP) Subjective: ALERT,NO COMPLAINT Objective: 10/15/16 08:08 Vital Signs Temperature 97.9 F 10/15/16 06:34 Pulse Rate 69 10/15/16 06:34 Respiratory Rate 16 10/15/16 06:34 Blood Pressure 104/65 10/15/16 06:34 O2 Sat by Pulse Oximetry (%) Assessment: 10/15/16 08:08 DETOX COMPLETED,NO WITHDRAWAL SYMPTOM Plan: DISCHARGE TODAY,FOLLOW UP WITH AFTER CARE PROGRAM ARRANGEMENT
--- NOTE | 2016-10-15 08:13 | DS ---
[facility] Detox Discharge Summary Admission Date: 10/10/16 Discharge Date: 10/15/16 - History Present History: Alcohol Dependence, Cannabis Dependence, Cocaine Dependence, Opioid Dependence, Sedative Dependence Additional Comments: FOLLOW UP WITH AFTER CARE PROGRAM ARRANGEMENT AND PMD FOR MEDICAL PROBLEM Pertinent Past History: ASTHMA GERD - Physical Exam Results Vital Signs: Vital Signs Temperature 97.9 F 10/15/16 06:34 Pulse Rate 69 10/15/16 06:34 Respiratory Rate 16 10/15/16 06:34 Blood Pressure 104/65 10/15/16 06:34 O2 Sat by Pulse Oximetry (%) Pertinent Admission Physical Exam Findings: WITHDRAWAL SYMPTOM - Treatment Hospital Course: Detox Protocol Followed, Detoxed Safely, Responded well, Discharged Condition Good Patient has Accepted a Rehab Referral to: DECLINED - Medication Discharge Medications: Ambulatory Orders Trazodone HCl [Desyrel -] 200 mg PO HS #60 tablet 07/11/15 Albuterol Sulfate Inhaler - [Ventolin HFA Inhaler -] 0 puff IH Q4H PRN #1 inhaler 07/14/15 Divalproex [Depakote -] 125 mg PO DAILY 10/10/16 Gabapentin [Neurontin -] 100 mg PO Q8H 10/10/16 Hydroxyzine Pamoate [Vistaril -] 25 mg PO TID 10/10/16 Ziprasidone HCl [Geodon] 40 mg PO BID 10/10/16 Ziprasidone HCl [Geodon] 40 mg PO HS #30 capsule 10/11/16 Divalproex [Depakote -] 250 mg PO BID #60 tablet.ec 10/14/16 Trazodone HCl [Desyrel -] 200 mg PO HS #30 tablet 10/14/16 Ziprasidone HCl [Geodon] 20 mg PO BID #60 capsule 10/14/16 - Diagnosis (1) Alcohol dependence with uncomplicated withdrawal Current Visit: Yes Status: Acute (2) Cocaine dependence with withdrawal Current Visit: Yes Status: Acute (3) Marijuana dependence Current Visit: Yes Status: Acute (4) Nicotine dependence Current Visit: Yes Status: Acute Qualifiers: Nicotine product type: cigarettes Substance use status: uncomplicated Qualified Code(s): F17.210 - Nicotine dependence, cigarettes, uncomplicated (5) Opioid dependence with withdrawal Current Visit: Yes Status: Acute (6) Sedative, hypnotic or anxiolytic dependence with withdrawal, uncomplicated Current Visit: Yes Status: Acute (7) Asthma Current Visit: Yes Status: Chronic Qualifiers: Asthma severity: mild intermittent Asthma complication type: uncomplicated Qualified Code(s): J45.20 - Mild intermittent asthma, uncomplicated - AMA Did Patient Leave Against Medical Advice: No
[2016-10-15 09:52] VITALS: BP 107/68; PULSE 90; TEMP 98.4
== END 2016-10-15 09:23 | disposition home or self-care (01) | DRG 773 ==
LOC: YASAS 10:53 → Y6N 15:20
PROVIDERS: ADMIT Internal Medicine; ATTEND Internal Medicine Addiction Medicine
PROC: HZ2ZZZZ Detoxification Services for Substance Abuse Treatment (ICD-10-PCS; principal; 2016-10-15)
DX: F11.23 Opioid dependence with withdrawal (principal); F13.230 Sedative, hypnotic or anxiolytic dependence with withdrawal, uncomplicated; F10.230 Alcohol dependence with withdrawal, uncomplicated; F14.20 Cocaine dependence, uncomplicated; F12.20 Cannabis dependence, uncomplicated; F17.210 Nicotine dependence, cigarettes, uncomplicated; F31.9 Bipolar disorder, unspecified; J45.20 Mild intermittent asthma, uncomplicated; M54.42 Lumbago with sciatica, left side; K27.9 Peptic ulcer, site unspecified, unspecified as acute or chronic, without hemorrhage or perforation
CPT/HCPCS: 36415; 80053; 80164; 81003; 81015; 85027; 86593; 93005; 93010